=== PATIENT | female | born 1945 | race Caucasian/White ===

== ENCOUNTER 2016-11-23 14:28 | Outpatient (CLI) | payer OTHER ==
[~2016-11-23 14:28] MED LIST: ATEN100T PO; BENA20TA75 PO; FENO145T PO; FLUO10CA65 PO; HYDR25TA4 PO; MOTRIN; NOR10 PO
[2016-11-23 17:57] LABS: PFT COLLAGEN/ADP 96 SECONDS (64-106); PFT COLLAGEN/EPINEPHRINE 125 SECONDS (80-184)
== END 2016-11-23 18:09 | disposition home or self-care (01) ==
LOC: SLB 14:28
DX: Z95.5 Presence of coronary angioplasty implant and graft (principal)
CPT/HCPCS: 36415; 85576